=== PATIENT | female | born 1970 | race Caucasian/White ===

== ENCOUNTER → 2019-08-08 | Outpatient (CLI) | payer OTHER ==
[~2019-08-08] MED LIST: LIDOCAINE 1%/EPINEPHRINE INJ 20 ML VIAL ONE; LIDOCAINE 2% INJ (20 MG/ML) 20 ML MDV ONE
--- NOTE | 2019-08-21 16:57 | RADIOLOGY REPORT (SQ) ---
EXAM DESCRIPTION: STEREO BREAST BX; LEFT DIAGNOSTIC MAMMO W/CAD IMAGES COMPLETED DATE/TIME: 08/17/2019 8:33 am; 08/08/2019 1:44 pm REASON FOR STUDY: OTH ABN AND INCONCLUSIVE FINDINGS ON DX IMAGING OF BREAST; POST STEREO R92.8 OTH ABN AND INCONCLUSIVE FINDINGS ON DX IMAGING OF [place] COMPARISON: Mammograms 07/12/2019 LIMITATIONS: None. PROCEDURE: Vacuum-assisted stereotactic-guided biopsy of the lesion in the left breast targeted and performed by Dr. Alcantara, the operating surgeon. Procedure and post-procedure imaging interpreted by a radiologist. Using stereotactic guidance, a vacuum-assisted core biopsy of the targeted lesion was performed. An Hourglass clip was deployed at the biopsy site. Post procedure image reveals the clip at the biops y site. TECHNIQUE: Images from the stereotactic unit acquired during the procedure. Specimen radiography performed. Yes. Post- procedure image acquired post-clip placement. Yes. Post procedure 2 view mammograms performed in the mammography suite for clip placement. Yes. FINDINGS: SPECIMEN RADIOGRAPH:Calcifications identified.. POST PROCEDURE MAMMOGRAMS FOR MARKER PLACEMENT: Yes. POST PROCEDURE MAMMOGRAM: Clip is in expected location. No significant hematoma. PATHOLOGY: Fibrocystic changes and levo cespedes metaplasia. Microcalcifications are identified. Negat darshana for malignancy CONCORDANT: Yes. The operating surgeon was notified of the findings. IMPRESSION: SUCCESSFUL STEREOTACTIC-GUIDED BIOPSY OF LESION IN THE LEFT BREAST. BIOPSY RESULTS ARE CONCORDANT WITH IMAGING FINDINGS. FOLLOW-UP: RETURN TO SCREENING COMMENT: BI-RADS 2, benign findings TECHNICAL DOCUMENTATION: JOB ID: [id number] 2010 [employer] All Rights Reserved Reading location - IP/workstation name: [email or web address]
== END ==
LOC: RAD 11:33 → EDSTATUS 12:30
PROVIDERS: ATTEND Surgery
DX: R92.8 Other abnormal and inconclusive findings on diagnostic imaging of breast (principal)
CPT/HCPCS: 88342 ×2; 88341 ×2; 88305 ×2; 19081; 77065; J3490 ×2